=== PATIENT | female | born 1965 | race Hispanic/Latino ===

== ENCOUNTER 2021-08-16 18:32 | Emergency (ER) | payer BC ==
[~2021-08-16] VITALS: Ht 165.1 cm; Wt 105.2 kg
[2021-08-16 18:38] VITALS: BP 165/74
[2021-08-16] MEDS ORDERED: LIDOCAINE HCL 1% MDV 50ML VIAL ONE (20:47)
== END 2021-08-16 21:49 | disposition home or self-care (01) ==
LOC: EDH 18:32
DX: L03.012 Cellulitis of left finger (principal); E03.9 Hypothyroidism, unspecified; E11.9 Type 2 diabetes mellitus without complications; I10 Essential (primary) hypertension; Z88.0 Allergy status to penicillin; Z90.49 Acquired absence of other specified parts of digestive tract
CPT/HCPCS: 10060; 82948; 99282; J3490